=== PATIENT | female | born 1965 | race Caucasian/White ===

== ENCOUNTER 2018-10-19 14:03 | Emergency (ER) | payer MEDICAID ==
[2018-10-19] MEDS ORDERED: NS 1,000 ML IV ONE (14:28)
[2018-10-19] MEDS ORDERED: fentaNYL 100 MCG/2 ML INJ IVP ONE ×2 (14:28→15:05)
--- NOTE | 2018-10-19 14:34 | EDPHY ---
H & P Smoking Status: Heavy smoker Time Seen by Provider: 10/19/18 14:04 HPI/ROS: CHIEF COMPLAINT: Diarrhea and abdominal pain HISTORY OF PRESENT ILLNESS: Patient has a history of irritable bowel syndrome which generally involves diarrhea as the main symptom. She states she traveled to [place] and was there between October 07 and October 14. She was implied all [place]. She states approximately 2 days after she arrived in [place] she developed diarrhea. Several other people she was traveling with also had diarrhea but they are now well. She has had diarrhea consistently since her travels. She states 4-5 loose yellowish watery stools per day. Additionally over the last 48 hr she has developed more intense sharp lower abdominal pain. Pain is diffuse, bilateral. She denies nausea, vomiting, fever, blood in stool. She denies other illnesses. She has tried Imodium, Pepto-Bismol, and has been taking Bentyl twice a day since her illness. She has Bentyl for her irritable bowel syndrome. No recent antibiotics. REVIEW OF SYSTEMS: Constitutional: No fever, no chills. Eyes: No discharge. ENT: No sore throat. Cardiovascular: No chest pain, no palpitations. Respiratory: No cough, no shortness of breath. Gastrointestinal: Per HPI Genitourinary: No dysuria. Musculoskeletal: No back pain. Skin: No rashes. Neurological: No headache. General Appearance: Alert, no distress. Eyes: Pupils equal and round no pallor or injection. ENT, Mouth: Mucous membranes moist. Respiratory: There are no retractions, lungs are clear to auscultation. Cardiovascular: Regular rate and rhythm. Gastrointestinal: Bowel sounds hyperactive, diffuse tenderness to palpation with occasional involuntary guarding. Abdomen soft, nondistended, no focal area of tenderness. Skin: Warm and dry, no rashes. Musculoskeletal: Neck is supple nontender. Extremities are symmetrical, full range of motion, no edema. Psychiatric: Patient is oriented X 3, there is no agitation. Medical/surgical history: Irritable bowel syndrome, hypertension, anxiety, surgeries include hysterectomy, appendectomy, cholecystectomy, orthopedic. Social history: Patient smokes half a pack a day of tobacco. Occasional alcohol, no drugs. PCP is Dr. Bruno, manager multimedia Dr. Falk. (Tiff Orr) Constitutional: Initial Vital Signs Temperature (C) 36.8 C 10/19/18 14:10 Heart Rate 78 05/11/19 14:10 Respiratory Rate 18 10/19/18 14:10 Blood Pressure 141/79 H 10/19/18 14:10 O2 Sat (%) 96 10/19/18 14:10 O2 Delivery Mode Room Air Allergies/Adverse Reactions: No Known Allergies Allergy (Verified 10/19/18 14:10) Home Medications: Medication Instructions Recorded Citalopram 01/29/18 Gabapentin 01/29/18 Lisinopril 01/29/18 Prilosec 01/29/18 traZODone 01/29/18 Azithromycin 500 mg PO DAILY #4 tablet 10/19/18 Medical Decision Making - Diagnostics Imaging Results: Imaging Impressions Abdomen CT 10/19/18 15:04 Impression: 1. Features most consistent with a gastroenteritis. 2. Probable flash-filling hemangioma near the hepatic dome, with a nonspecific second hypodense lesion seen more centrally within the liver. Consider multiphasic contrast-enhanced CT or MR imaging in 6 months to assure stability of these findings. 3. Status post appendectomy, cholecystectomy, and hysterectomy. Findings were discussed with Herbie Lopez M.D. at 16:12, on 10/19/2018. ED Course/Re-evaluation: 2:45 p.m. Discussed with patient that my shift ends at 3:00 pm and will hand off care to Dr. Lopez. Discussed with her treatment and workup plan. She is more comfortable after fentanyl. 3:00 p.m. Discussed patient's history, physical, initial test results with Dr. Lopez. Disposition depends on test results, response to treatment, re- evaluation. (Tiff Orr) 4:20 p.m. we discussed the CT and lab results which are all very reassuring. Abdominal exam is currently benign. She is provided a stool sample which is pending. Discussed options and treatment plan. Will treat with Toradol for abdominal cramping. Will start on azithromycin for what is likely traveler's diarrhea. The patient is agreeable with this plan. Discussed indications for returning. She is afebrile and nontoxic-appearing. Discussed 6 months follow- up with MRI (Herbie Lopez) Differential Diagnosis: Differential diagnosis includes but is not limited to irritable bowel syndrome exacerbation, traveler's diarrhea, C difficile colitis, other colitis, dehydration, electrolyte abnormalities. (Tiff Orr) - Data Points Laboratory Results: 10/19/18 10/19/18 14:42 14:36 POC Sodium 144 mEq/L mEq/L (135-145) POC Potassium 4.2 mEq/L mEq/L (3.3-5.0) POC Chloride 106.0 mEq/L mEq/L (97-110) POC Total CO2 28 mEq/L mEq/L (22-31) POC BUN 7 mg/dL mg/dL (7-23) POC Creatinine 0.8 mg/dL mg/dL (0.6-1.0) POC Glucose 86 mg/dL mg/dL (70-100) POC Calcium 9.8 mg/dL mg/dL (8.5-10.4) POC Total Bilirubin 0.6 mg/dL mg/dL (0.1-1.4) POC AST 48 IU/L H IU/L (14-46) POC ALT 75 IU/L H IU/L (9-52) POC Alk Phosphatase 67 IU/L IU/L (38-126) POC Total Protein 7.3 g/dL g/dL (6.3-8.2) POC Albumin 4.0 g/dL g/dL (3.5-5.0) C. difficile Tox (PCR) Cancelled Microbiology Results: MICROBIOLOGY 10/19/18 14:36 Stool Gastrointestinal Tract Panel (PCR) - Final E.coli Enteropathogenic(Epec) Medications Given: Discontinued Medications Azithromycin (Zithromax) 500 mg PO EDNOW ONE PRN Reason: Protocol Stop: 10/19/18 16:23 Last Admin: 10/19/18 16:32 Dose: 500 mg Fentanyl (Sublimaze) 50 mcg IVP EDNOW ONE Stop: 10/19/18 14:29 Last Admin: 10/19/18 14:46 Dose: 50 mcg Fentanyl (Sublimaze) 50 mcg IVP EDNOW ONE Stop: 10/19/18 15:06 Last Admin: 10/19/18 15:11 Dose: 50 mcg Sodium Chloride (Ns) 1,000 mls @ 0 mls/hr IV EDNOW ONE; Wide Open PRN Reason: Protocol Stop: 10/19/18 14:29 Last Admin: 10/19/18 14:40 Dose: 1,000 mls Ketorolac Tromethamine (Toradol) 30 mg IVP ONCE ONE Stop: 10/19/18 16:23 Last Admin: 10/19/18 16:35 Dose: 30 mg Point of Care Test Results: CBC CBC Collection Date 10/19/18 CBC Collection Time 14:36 WBC 6.38 RBC 3.76 HGB 13.2 HCT 37.3 PLT 317 Neut # 3.06 Neut 48.0 LYMPH # 2.47 LYMPH 38.7 MCV 99.2 Chemistry 10/19/18 14:42 POC Sodium 144 mEq/L mEq/L (135-145) POC Potassium 4.2 mEq/L mEq/L (3.3-5.0) POC Chloride 106.0 mEq/L mEq/L (97-110) POC Total CO2 28 mEq/L mEq/L (22-31) POC BUN 7 mg/dL mg/dL (7-23) POC Creatinine 0.8 mg/dL mg/dL (0.6-1.0) POC Glucose 86 mg/dL mg/dL (70-100) POC Calcium 9.8 mg/dL mg/dL (8.5-10.4) POC Total Bilirubin 0.6 mg/dL mg/dL (0.1-1.4) POC AST 48 IU/L H IU/L (14-46) POC ALT 75 IU/L H IU/L (9-52) POC Alk Phosphatase 67 IU/L IU/L (38-126) POC Total Protein 7.3 g/dL g/dL (6.3-8.2) POC Albumin 4.0 g/dL g/dL (3.5-5.0) Departure - Departure Disposition: Home, Routine, Self-Care Clinical Impression: Travelers' diarrhea Condition: Fair Instructions: Traveler's Diarrhea (ED) Referrals: NONE *PRIMARY CARE P,. [Primary Care Provider] - As per Instructions Dae Sal MD [Medical Doctor] - 5-7 days, call for appt. Prescriptions: Azithromycin 500 mg PO DAILY #4 tablet
[2018-10-19] MEDS ORDERED: IOPAMIDOL (ISOVUE-300) 100 ML BTL ONE (15:12)
[2018-10-19] MEDS ORDERED: AZITHROMYCIN 250 MG TAB PO ONE (16:22)
[2018-10-19] MEDS ORDERED: KETOROLAC 30 MG/1 ML SDV IVP ONE (16:22)
[2018-10-19 16:40] VITALS: BP 128/66
== END 2018-10-19 16:56 | disposition home or self-care (01) ==
LOC: CED 14:03
DX: R19.7 Diarrhea, unspecified (principal); K58.0 Irritable bowel syndrome with diarrhea; I10 Essential (primary) hypertension; F41.9 Anxiety disorder, unspecified; E86.9 Volume depletion, unspecified
CPT/HCPCS: 74177-PO; 80053-ER; 85025-QW-ER; 96361-ER; 96374-ER; 96375-ER; 99285-ER; J1885; J3010; Q9967